=== PATIENT | female | born 1945 | race Caucasian/White ===

== ENCOUNTER → 2018-03-22 | Outpatient (CLI) | payer MEDICARE, BC ==
[2018-03-22 09:35] LABS: EOS # 0.1 (0.04-0.40); EOS % 1.8 % (1.0-5.0); HEMATOCRIT 43.5 % (37.0-47.0); HEMOGLOBIN 14.4 g/dL (12.5-16.0); LYMPH# 1.9 (1.50-4.00); MEAN CELL VOLUME 90 fl (78-100); MEAN CORPUSCULAR HEMOGLOBIN 30 pg (27-31); MEAN CORPUSCULAR HGB CONC 33 g/dL (33-37); MEAN PLATELET VOLUME 9.2 fl (7.4-10.4); MONO # 0.9 (0.20-0.80); NEU # 4.5 (1.40-6.50); PLATELET COUNT 337 K/mm3 (130-400); RED BLOOD COUNT 4.81 M/mm3 (4.10-5.30); RED CELL DISTRIBUTION WIDTH 13.6 % (11.5-14.5); WHITE BLOOD COUNT 7.4 K/mm3 (4.8-10.8)
[2018-03-22 09:51] LABS: ALBUMIN 4.1 g/dL (3.5-5.0); BUN/CREATININE RATIO 22.2 (6.0-26.0); POTASSIUM 3.5 mmol/L (3.6-5.0); TOTAL BILIRUBIN 0.5 mg/dL (0.2-1.3); TOTAL PROTEIN 7.3 g/dL (6.3-8.2)
== END ==
LOC: LAB 09:09
PROVIDERS: Family Medicine
DX: Z01.419 Encounter for gynecological examination (general) (routine) without abnormal findings (principal); E03.9 Hypothyroidism, unspecified

== ENCOUNTER → 2018-06-15 | Outpatient (CLI) | payer MEDICARE, BC | LOC: LAB 07:17 | DX: E03.9 Hypothyroidism, unspecified (principal) ==

== ENCOUNTER → 2018-08-31 | Outpatient (CLI) | payer MEDICARE, BC | LOC: MAMMO 08:07 | DX: Z12.31 Encounter for screening mammogram for malignant neoplasm of breast (principal) ==

== ENCOUNTER → 2018-09-26 | Outpatient (CLI) | payer MEDICARE, BC ==
[2018-09-26 15:22] LABS: ALBUMIN 4.6 g/dL (3.5-5.0); CALCIUM 9.5 mg/dL (8.4-10.2); POTASSIUM 3.6 mmol/L (3.6-5.0); TOTAL BILIRUBIN 0.5 mg/dL (0.2-1.3); TOTAL PROTEIN 7.4 g/dL (6.3-8.2)
== END ==
LOC: LAB 14:49
PROVIDERS: Family Medicine
DX: K44.9 Diaphragmatic hernia without obstruction or gangrene (principal); R91.1 Solitary pulmonary nodule; Z90.49 Acquired absence of other specified parts of digestive tract; Z90.710 Acquired absence of both cervix and uterus; Z90.89 Acquired absence of other organs; I10 Essential (primary) hypertension; E03.9 Hypothyroidism, unspecified; K43.9 Ventral hernia without obstruction or gangrene
CPT/HCPCS: Q9967

== ENCOUNTER → 2018-09-28 | Outpatient (CLI) | payer MEDICARE, BC | LOC: RAD 07:41 | DX: R91.1 Solitary pulmonary nodule (principal); R59.0 Localized enlarged lymph nodes | CPT/HCPCS: Q9967 ==

== ENCOUNTER → 2018-12-28 | Outpatient (CLI) | payer MEDICARE, BC ==
[2018-12-28 09:32] LABS: EOS # 0.1 (0.04-0.40); EOS % 1.1 % (1.0-5.0); HEMATOCRIT 44.4 % (37.0-47.0); HEMOGLOBIN 14.4 g/dL (12.5-16.0); LYMPH# 1.9 (1.50-4.00); MEAN CELL VOLUME 91 fl (78-100); MEAN CORPUSCULAR HEMOGLOBIN 29 pg (27-31); MEAN CORPUSCULAR HGB CONC 32 g/dL (33-37); MEAN PLATELET VOLUME 9.3 fl (7.4-10.4); MONO # 0.9 (0.20-0.80); NEU # 5.1 (1.40-6.50); PLATELET COUNT 342 K/mm3 (130-400); RED CELL DISTRIBUTION WIDTH 13.9 % (11.5-14.5); WHITE BLOOD COUNT 8.1 K/mm3 (4.8-10.8)
[2018-12-28 09:42] LABS: ALBUMIN 4.5 g/dL (3.5-5.0); CALCIUM 9.9 mg/dL (8.4-10.2); POTASSIUM 4.6 mmol/L (3.6-5.0); TOTAL BILIRUBIN 0.6 mg/dL (0.2-1.3); TOTAL PROTEIN 7.5 g/dL (6.3-8.2)
== END ==
LOC: LAB 08:56
PROVIDERS: Family Medicine
DX: E03.9 Hypothyroidism, unspecified (principal); I10 Essential (primary) hypertension

== ENCOUNTER → 2018-12-29 | Outpatient (CLI) | payer MEDICARE, BC | LOC: RAD 08:48 | DX: K44.9 Diaphragmatic hernia without obstruction or gangrene (principal); R91.1 Solitary pulmonary nodule | CPT/HCPCS: Q9967 ==

== ENCOUNTER → 2019-06-02 | Outpatient (CLI) | payer MEDICARE, BC | LOC: LAB 09:17 | DX: L03.90 Cellulitis, unspecified (principal) ==

== ENCOUNTER → 2019-06-13 | Outpatient (CLI) | payer MEDICARE, BC ==
[2019-06-13 09:44] LABS: HEMATOCRIT 42.8 % (37.0-47.0); HEMOGLOBIN 14.3 g/dL (12.5-16.0); MEAN CELL VOLUME 89 fl (78-100); MEAN CORPUSCULAR HEMOGLOBIN 30 pg (27-31); MEAN CORPUSCULAR HGB CONC 33 g/dL (33-37); MEAN PLATELET VOLUME 8.6 fl (7.4-10.4); PLATELET COUNT 295 K/mm3 (130-400); RED BLOOD COUNT 4.81 M/mm3 (4.10-5.30); RED CELL DISTRIBUTION WIDTH 14.3 % (11.5-14.5); WHITE BLOOD COUNT 5.4 K/mm3 (4.8-10.8)
[2019-06-13 09:55] LABS: ALBUMIN 4.3 g/dL (3.4-4.8); POTASSIUM 4.1 mmol/L (3.5-5.1); SODIUM 138 mmol/L (136-145)
[2019-06-13 09:56] LABS: CALCIUM 9.8 mg/dL (8.3-10.5)
[2019-06-13 09:57] LABS: GLUCOSE 105 mg/dL (65-105); TOTAL PROTEIN 7.4 g/dL (6.2-8.1)
[2019-06-13 09:58] LABS: CARBON DIOXIDE 26 mmol/L (23-31)
[2019-06-13 09:59] LABS: TOTAL BILIRUBIN 0.5 mg/dL (0.2-1.2)
[2019-06-13 10:03] LABS: AST-SGOT 27 U/L (5-34)
[2019-06-13 10:27] LABS: ALT/SGPT 34 U/L (0-55)
[2019-06-13 10:38] LABS: BAND 1 % (0-10); NEUTROPHILS 62 % (42-75)
[2019-06-13 10:39] LABS: LYMPHOCYTE 16 % (20-51); MONOCYTE 17 % (3-10)
== END ==
LOC: LAB 09:36
PROVIDERS: Family Medicine
DX: E87.6 Hypokalemia (principal); E03.9 Hypothyroidism, unspecified; I10 Essential (primary) hypertension

== ENCOUNTER → 2019-07-04 | Outpatient (CLI) | payer MEDICARE, BC ==
[2019-07-04 09:09] LABS: ALBUMIN 4.3 g/dL (3.4-4.8); POTASSIUM 3.7 mmol/L (3.5-5.1)
[2019-07-04 09:12] LABS: TOTAL PROTEIN 7.5 g/dL (6.2-8.1)
[2019-07-04 09:14] LABS: TOTAL BILIRUBIN 0.5 mg/dL (0.2-1.2)
== END ==
LOC: LAB 08:51
PROVIDERS: Family Medicine
DX: N17.9 Acute kidney failure, unspecified (principal); E03.9 Hypothyroidism, unspecified

== ENCOUNTER → 2019-07-31 | Outpatient (CLI) | payer MEDICARE, BC | LOC: RAD 11:05 | DX: M79.672 Pain in left foot (principal) ==

== ENCOUNTER → 2019-09-01 | Outpatient (CLI) | payer MEDICARE, BC | LOC: MAMMO 08:51 | DX: Z12.31 Encounter for screening mammogram for malignant neoplasm of breast (principal); N64.89 Other specified disorders of breast ==

== ENCOUNTER → 2019-09-11 | Outpatient (CLI) | payer MEDICARE, BC | LOC: LAB 07:13 → MAMMO 07:13 | DX: R92.8 Other abnormal and inconclusive findings on diagnostic imaging of breast (principal) ==

== ENCOUNTER → 2019-12-08 | Outpatient (CLI) | payer MEDICARE, BC ==
[2019-12-08 09:37] LABS: ALBUMIN 4.3 g/dL (3.4-4.8)
[2019-12-08 09:38] LABS: CALCIUM 10.2 mg/dL (8.3-10.5)
[2019-12-08 09:40] LABS: TOTAL PROTEIN 7.1 g/dL (6.2-8.1)
[2019-12-08 09:41] LABS: TOTAL BILIRUBIN 0.7 mg/dL (0.2-1.2)
[2019-12-08 10:23] LABS: EOS # 0.1 (0.04-0.40); EOS % 0.9 % (1.0-5.0); HEMATOCRIT 43.4 % (37.0-47.0); LYMPH# 2.2 (1.50-4.00); MEAN CELL VOLUME 90 fl (78-100); MEAN CORPUSCULAR HEMOGLOBIN 29 pg (27-31); MEAN CORPUSCULAR HGB CONC 32 g/dL (33-37); MEAN PLATELET VOLUME 9.2 fl (7.4-10.4); MONO # 0.8 (0.20-0.80); NEU # 4.3 (1.40-6.50); PLATELET COUNT 399 K/mm3 (130-400); RED BLOOD COUNT 4.82 M/mm3 (4.10-5.30); RED CELL DISTRIBUTION WIDTH 13.7 % (11.5-14.5); WHITE BLOOD COUNT 7.5 K/mm3 (4.8-10.8)
== END ==
LOC: LAB 09:09
PROVIDERS: Family Medicine
DX: Z00.00 Encounter for general adult medical examination without abnormal findings (principal); E78.5 Hyperlipidemia, unspecified; E03.9 Hypothyroidism, unspecified; E56.9 Vitamin deficiency, unspecified

== ENCOUNTER → 2019-12-19 | Outpatient (CLI) | payer MEDICARE, BC | LOC: RAD 12:50 → MAMMO 13:00 | DX: Z13.820 Encounter for screening for osteoporosis (principal); M85.80 Other specified disorders of bone density and structure, unspecified site ==

== ENCOUNTER → 2020-04-29 | Day surgery (SDC) | payer MEDICARE, BC | LOC: MSO 07:17 | DX: Z12.11 Encounter for screening for malignant neoplasm of colon (principal); Z86.010 Personal history of colon polyps; Z80.0 Family history of malignant neoplasm of digestive organs; K57.30 Diverticulosis of large intestine without perforation or abscess without bleeding; I10 Essential (primary) hypertension; K21.9 Gastro-esophageal reflux disease without esophagitis; E66.9 Obesity, unspecified; E07.9 Disorder of thyroid, unspecified; Z90.710 Acquired absence of both cervix and uterus; Z79.899 Other long term (current) drug therapy | CPT/HCPCS: 00812; J2704; J7120 ==

== ENCOUNTER → 2020-05-17 | Outpatient (CLI) | payer MEDICARE, BC ==
[2020-05-17 08:53] LABS: BASO # 0.1 (0.02-0.10); EOS # 0.1 (0.04-0.40); EOS % 1.1 % (1.0-5.0); HEMATOCRIT 41.9 % (37.0-47.0); HEMOGLOBIN 13.8 g/dL (12.5-16.0); MEAN CELL VOLUME 91 fl (78-100); MEAN CORPUSCULAR HEMOGLOBIN 30 pg (27-31); MEAN CORPUSCULAR HGB CONC 33 g/dL (33-37); MEAN PLATELET VOLUME 8.7 fl (7.4-10.4); NEU # 5.1 (1.40-6.50); PLATELET COUNT 361 K/mm3 (130-400); RED BLOOD COUNT 4.59 M/mm3 (4.10-5.30); RED CELL DISTRIBUTION WIDTH 13.6 % (11.5-14.5); WHITE BLOOD COUNT 8.3 K/mm3 (4.8-10.8)
[2020-05-17 09:07] LABS: ALBUMIN 4.3 g/dL (3.4-4.8); POTASSIUM 4.4 mmol/L (3.5-5.1)
[2020-05-17 09:10] LABS: TOTAL PROTEIN 7.4 g/dL (6.2-8.1)
[2020-05-17 09:12] LABS: TOTAL BILIRUBIN 0.7 mg/dL (0.2-1.2)
== END ==
LOC: LAB 08:43
PROVIDERS: Family Medicine
DX: Z00.00 Encounter for general adult medical examination without abnormal findings (principal); E03.9 Hypothyroidism, unspecified; E78.5 Hyperlipidemia, unspecified

== ENCOUNTER → 2020-05-22 | Outpatient (CLI) | payer MEDICARE, BC | LOC: LAB 09:14 | DX: R73.9 Hyperglycemia, unspecified (principal) ==

== ENCOUNTER → 2020-09-03 | Outpatient (CLI) | payer MEDICARE, BC | LOC: MAMMO 12:56 | DX: Z12.31 Encounter for screening mammogram for malignant neoplasm of breast (principal) ==

== ENCOUNTER → 2020-10-02 | Outpatient (CLI) | payer MEDICARE, BC ==
[2020-10-02 10:03] LABS: POTASSIUM 3.9 mmol/L (3.5-5.1)
[2020-10-02 10:04] LABS: CALCIUM 9.4 mg/dL (8.3-10.5)
[2020-10-02 10:11] LABS: MAGNESIUM 1.62 mg/dL (1.60-2.60)
== END ==
LOC: LAB 09:24
PROVIDERS: Family Medicine
DX: R25.2 Cramp and spasm (principal)

== ENCOUNTER → 2020-10-10 | Outpatient (CLI) | payer MEDICARE, BC | LOC: RAD 11:00 | DX: M79.606 Pain in leg, unspecified (principal); R25.2 Cramp and spasm ==

== ENCOUNTER → 2020-10-15 | Outpatient (CLI) | payer MEDICARE, BC | LOC: RAD 07:55 | DX: M43.16 Spondylolisthesis, lumbar region (principal); M51.36 Other intervertebral disc degeneration, lumbar region ==

== ENCOUNTER → 2020-10-17 | Outpatient (CLI) | payer MEDICARE, BC | LOC: RAD 13:22 | DX: M48.061 Spinal stenosis, lumbar region without neurogenic claudication (principal); M51.16 Intervertebral disc disorders with radiculopathy, lumbar region ==

== ENCOUNTER 2020-10-30 08:51 | Outpatient (RCR) | payer MEDICARE, BC | END 2020-12-04 16:30 | disposition home or self-care (01) | LOC: PT 08:51 | DX: M48.00 Spinal stenosis, site unspecified (principal) ==

== ENCOUNTER → 2020-12-10 | Outpatient (CLI) | payer MEDICARE, BC ==
[2020-12-10 09:37] LABS: ALBUMIN 4.4 g/dL (3.4-4.8); POTASSIUM 4.3 mmol/L (3.5-5.1)
[2020-12-10 09:38] LABS: CALCIUM 9.7 mg/dL (8.3-10.5)
[2020-12-10 09:39] LABS: TOTAL PROTEIN 7.4 g/dL (6.2-8.1)
[2020-12-10 09:41] LABS: TOTAL BILIRUBIN 0.7 mg/dL (0.2-1.2)
[2020-12-10 09:56] LABS: URINE APPEARANCE HAZY; URINE BILIRUBIN NEGATIVE (NEGATIVE); URINE BLOOD TRACE (NEGATIVE); URINE COLOR YELLOW; URINE GLUCOSE NEGATIVE (NEGATIVE); URINE KETONE NEGATIVE (NEGATIVE); URINE LEUKOCYTE ESTERASE NEGATIVE (NEGATIVE); URINE NITRATE NEGATIVE (NEGATIVE); URINE PROTEIN(semi-quant) TRACE mg/dL (NEGATIVE); URINE UROBILINOGEN NORMAL (NORMAL)
== END ==
LOC: LAB 09:09
PROVIDERS: Family Medicine
DX: Z00.00 Encounter for general adult medical examination without abnormal findings (principal); E03.9 Hypothyroidism, unspecified; R30.9 Painful micturition, unspecified

== ENCOUNTER → 2021-02-10 | Outpatient (CLI) | payer MEDICARE, BC | LOC: RAD 10:54 | DX: M79.672 Pain in left foot (principal) ==

== ENCOUNTER → 2021-05-06 | Outpatient (CLI) | payer MEDICARE, BC ==
[2021-05-06 13:41] LABS: ALBUMIN 4.3 g/dL (3.4-4.8); POTASSIUM 3.7 mmol/L (3.5-5.1)
[2021-05-06 13:42] LABS: CALCIUM 9.8 mg/dL (8.3-10.5)
[2021-05-06 13:43] LABS: HEMATOCRIT 39.8 % (37.0-47.0); MEAN PLATELET VOLUME 8.8 fl (7.4-10.4); RED BLOOD COUNT 4.28 M/mm3 (4.10-5.30); RED CELL DISTRIBUTION WIDTH 13.2 % (11.5-14.5); TOTAL PROTEIN 7.3 g/dL (6.2-8.1); WHITE BLOOD COUNT 10.2 K/mm3 (4.8-10.8)
[2021-05-06 13:45] LABS: TOTAL BILIRUBIN 0.4 mg/dL (0.2-1.2)
[2021-05-06 13:55] LABS: TROPONIN-I 0.03 ng/mL (<0.030)
== END ==
LOC: AMSURD 13:13
PROVIDERS: Nurse Practitioner
DX: I49.9 Cardiac arrhythmia, unspecified (principal)

== ENCOUNTER → 2021-05-22 | Outpatient (CLI) | payer MEDICARE, BC | LOC: AMSURD 15:42 | DX: I49.9 Cardiac arrhythmia, unspecified (principal) ==

== ENCOUNTER → 2021-06-17 | Outpatient (CLI) | payer MEDICARE, BC ==
[2021-06-17 10:03] LABS: BASO # 0.05 (0.02-0.10); EOS # 0.14 (0.04-0.40); HEMATOCRIT 40.5 % (37.0-47.0); HEMOGLOBIN 13.2 g/dL (12.5-16.0); LYMPH# 1.92 (1.50-4.00); MEAN CELL VOLUME 93 fl (78-100); MEAN CORPUSCULAR HEMOGLOBIN 30 pg (27-31); MEAN CORPUSCULAR HGB CONC 33 g/dL (33-37); MEAN PLATELET VOLUME 8.8 fl (7.4-10.4); MONO # 0.78 (0.20-0.80); NEU # 4.13 (1.40-6.50); PLATELET COUNT 355 K/mm3 (130-400); RED BLOOD COUNT 4.38 M/mm3 (4.10-5.30); RED CELL DISTRIBUTION WIDTH 13.5 % (11.5-14.5); WHITE BLOOD COUNT 7.1 K/mm3 (4.8-10.8)
[2021-06-17 10:04] LABS: ALBUMIN 4.3 g/dL (3.4-4.8); POTASSIUM 4.7 mmol/L (3.5-5.1)
[2021-06-17 10:05] LABS: CALCIUM 10.5 mg/dL (8.3-10.5)
[2021-06-17 10:06] LABS: TOTAL PROTEIN 7.3 g/dL (6.2-8.1)
[2021-06-17 10:08] LABS: TOTAL BILIRUBIN 0.5 mg/dL (0.2-1.2)
== END ==
LOC: LAB 09:03
PROVIDERS: Family Medicine
DX: E55.9 Vitamin D deficiency, unspecified (principal); I10 Essential (primary) hypertension; E03.9 Hypothyroidism, unspecified

== ENCOUNTER → 2021-07-29 | Outpatient (CLI) | payer MEDICARE, BC | LOC: RAD 10:40 → LAB 10:40 → RAD 10:45 | DX: N18.32 Chronic kidney disease, stage 3b (principal) ==

== ENCOUNTER → 2021-07-31 | Outpatient (CLI) | payer MEDICARE, BC | LOC: RAD 08:52 | DX: M16.11 Unilateral primary osteoarthritis, right hip (principal); M25.561 Pain in right knee ==

== ENCOUNTER → 2021-09-10 | Outpatient (CLI) | payer MEDICARE, BC | LOC: MAMMO 08:11 | DX: Z12.31 Encounter for screening mammogram for malignant neoplasm of breast (principal) ==

== ENCOUNTER → 2021-10-21 | Outpatient (CLI) | payer MEDICARE, BC ==
[2021-10-21 08:34] LABS: ALBUMIN 4.5 g/dL (3.4-4.8); POTASSIUM 4.2 mmol/L (3.5-5.1)
[2021-10-21 08:35] LABS: CALCIUM 10.2 mg/dL (8.3-10.5)
[2021-10-21 08:36] LABS: TOTAL PROTEIN 7.5 g/dL (6.2-8.1)
[2021-10-21 08:38] LABS: TOTAL BILIRUBIN 0.7 mg/dL (0.2-1.2)
[2021-10-21 09:26] LABS: URINE APPEARANCE CLEAR; URINE BILIRUBIN NEGATIVE (NEGATIVE); URINE BLOOD TRACE (NEGATIVE); URINE COLOR YELLOW; URINE GLUCOSE NEGATIVE (NEGATIVE); URINE KETONE NEGATIVE (NEGATIVE); URINE LEUKOCYTE ESTERASE NEGATIVE (NEGATIVE); URINE NITRATE NEGATIVE (NEGATIVE); URINE PROTEIN(semi-quant) TRACE (NEGATIVE); URINE UROBILINOGEN NORMAL (NORMAL)
== END ==
LOC: LAB 07:54
PROVIDERS: Internal Medicine Nephrology
DX: I12.9 Hypertensive chronic kidney disease with stage 1 through stage 4 chronic kidney disease, or unspecified chronic kidney disease (principal); N18.32 Chronic kidney disease, stage 3b; E66.8 Other obesity

== ENCOUNTER → 2021-11-19 | Outpatient (CLI) | payer MEDICARE, BC ==
[2021-11-19 10:05] LABS: BASO # 0.06 K/mm3 (0.02-0.10); EOS # 0.12 K/mm3 (0.04-0.40); EOS % 1.7 % (1.0-5.0); HEMOGLOBIN 13.7 g/dL (12.5-16.0); LYMPH# 1.91 K/mm3 (1.50-4.00); MEAN CELL VOLUME 90 fl (78-100); MEAN CORPUSCULAR HEMOGLOBIN 30 pg (27-31); MEAN CORPUSCULAR HGB CONC 33 g/dL (33-37); MONO # 0.95 K/mm3 (0.20-0.80); NEU # 4.11 K/mm3 (1.40-6.50); PLATELET COUNT 359 K/mm3 (130-400); RED BLOOD COUNT 4.56 M/mm3 (4.10-5.30); WHITE BLOOD COUNT 7.2 K/mm3 (4.8-10.8)
[2021-11-19 10:10] LABS: ALBUMIN 4.4 g/dL (3.4-4.8)
[2021-11-19 10:12] LABS: CALCIUM 9.8 mg/dL (8.3-10.5)
[2021-11-19 10:13] LABS: TOTAL PROTEIN 7.2 g/dL (6.2-8.1)
[2021-11-19 10:15] LABS: TOTAL BILIRUBIN 0.6 mg/dL (0.2-1.2)
== END ==
LOC: LAB 09:35
PROVIDERS: Family Medicine
DX: I12.9 Hypertensive chronic kidney disease with stage 1 through stage 4 chronic kidney disease, or unspecified chronic kidney disease (principal); N18.2 Chronic kidney disease, stage 2 (mild); E03.9 Hypothyroidism, unspecified; E55.9 Vitamin D deficiency, unspecified; E78.5 Hyperlipidemia, unspecified

== ENCOUNTER → 2021-12-23 | Outpatient (CLI) | payer MEDICARE, BC | LOC: RAD 08:06 → MAMMO 08:06 | DX: Z13.820 Encounter for screening for osteoporosis (principal); M85.80 Other specified disorders of bone density and structure, unspecified site ==

== ENCOUNTER → 2022-05-20 | Outpatient (CLI) | payer MEDICARE, BC ==
[2022-05-20 08:13] LABS: BASO # 0.04 K/mm3 (0.02-0.10); EOS # 0.14 K/mm3 (0.04-0.40); EOS % 1.7 % (1.0-5.0); HEMATOCRIT 40.9 % (37.0-47.0); HEMOGLOBIN 13.4 g/dL (12.5-16.0); LYMPH# 1.85 K/mm3 (1.50-4.00); MEAN CELL VOLUME 92 fl (78-100); MEAN CORPUSCULAR HEMOGLOBIN 30 pg (27-31); MEAN CORPUSCULAR HGB CONC 33 g/dL (33-37); MEAN PLATELET VOLUME 8.8 fl (7.4-10.4); MONO # 0.78 K/mm3 (0.20-0.80); NEU # 5.41 K/mm3 (1.40-6.50); PLATELET COUNT 356 K/mm3 (130-400); RED BLOOD COUNT 4.44 M/mm3 (4.10-5.30); RED CELL DISTRIBUTION WIDTH 12.9 % (11.5-14.5); WHITE BLOOD COUNT 8.3 K/mm3 (4.8-10.8)
[2022-05-20 08:15] LABS: ALBUMIN 4.4 g/dL (3.4-4.8); POTASSIUM 4.5 mmol/L (3.5-5.1)
[2022-05-20 08:17] LABS: CALCIUM 9.7 mg/dL (8.3-10.5)
[2022-05-20 08:18] LABS: TOTAL PROTEIN 7.2 g/dL (6.2-8.1)
[2022-05-20 08:20] LABS: TOTAL BILIRUBIN 0.6 mg/dL (0.2-1.2)
== END ==
LOC: LAB 07:47
PROVIDERS: Family Medicine
DX: I12.9 Hypertensive chronic kidney disease with stage 1 through stage 4 chronic kidney disease, or unspecified chronic kidney disease (principal); N18.2 Chronic kidney disease, stage 2 (mild); E03.9 Hypothyroidism, unspecified; E55.9 Vitamin D deficiency, unspecified

== ENCOUNTER → 2022-06-26 | Outpatient (CLI) | payer MEDICARE, BC ==
[2022-06-26 14:24] LABS: BASO # 0.05 K/mm3 (0.02-0.10); EOS # 0.14 K/mm3 (0.04-0.40); EOS % 1.3 % (1.0-5.0); HEMOGLOBIN 12.5 g/dL (12.5-16.0); LYMPH# 2.36 K/mm3 (1.50-4.00); MEAN CELL VOLUME 93 fl (78-100); MEAN CORPUSCULAR HEMOGLOBIN 30 pg (27-31); MEAN CORPUSCULAR HGB CONC 33 g/dL (33-37); MEAN PLATELET VOLUME 8.8 fl (7.4-10.4); PLATELET COUNT 330 K/mm3 (130-400); RED BLOOD COUNT 4.11 M/mm3 (4.10-5.30); RED CELL DISTRIBUTION WIDTH 13.6 % (11.5-14.5); WHITE BLOOD COUNT 10.7 K/mm3 (4.8-10.8)
[2022-06-26 14:32] LABS: ALBUMIN 4.3 g/dL (3.4-4.8)
[2022-06-26 14:33] LABS: POTASSIUM 4.3 mmol/L (3.5-5.1)
[2022-06-26 14:34] LABS: CALCIUM 9.5 mg/dL (8.3-10.5)
[2022-06-26 14:36] LABS: PROTHROMBIN TIME 10.2 SECONDS (9.0-12.0)
[2022-06-26 14:37] LABS: TOTAL BILIRUBIN 0.4 mg/dL (0.2-1.2)
[2022-06-26 15:02] LABS: URINE APPEARANCE HAZY; URINE BILIRUBIN NEGATIVE (NEGATIVE); URINE BLOOD NEGATIVE (NEGATIVE); URINE COLOR YELLOW; URINE GLUCOSE NEGATIVE (NEGATIVE); URINE KETONE NEGATIVE (NEGATIVE); URINE LEUKOCYTE ESTERASE NEGATIVE (NEGATIVE); URINE MUCUS PRESENT (NOT PRESENT); URINE NITRATE NEGATIVE (NEGATIVE); URINE PROTEIN(semi-quant) NEGATIVE (NEGATIVE); URINE UROBILINOGEN NORMAL (NORMAL)
== END ==
LOC: LAB 13:33
PROVIDERS: Family Medicine
DX: Z01.812 Encounter for preprocedural laboratory examination (principal); Z01.810 Encounter for preprocedural cardiovascular examination; K44.9 Diaphragmatic hernia without obstruction or gangrene; H81.13 Benign paroxysmal vertigo, bilateral; I12.9 Hypertensive chronic kidney disease with stage 1 through stage 4 chronic kidney disease, or unspecified chronic kidney disease; N18.2 Chronic kidney disease, stage 2 (mild); K21.9 Gastro-esophageal reflux disease without esophagitis; E03.9 Hypothyroidism, unspecified; N39.46 Mixed incontinence; E66.9 Obesity, unspecified; E55.9 Vitamin D deficiency, unspecified

== ENCOUNTER 2022-08-12 09:00 | Outpatient (RCR) | payer MEDICARE, BC | END 2022-09-09 | disposition home or self-care (01) | LOC: PT | DX: M25.561 Pain in right knee (principal); Z96.651 Presence of right artificial knee joint ==

== ENCOUNTER → 2023-06-16 | Outpatient (CLI) | payer MEDICARE, BC | LOC: LAB 14:17 | DX: B07.0 Plantar wart (principal); E03.9 Hypothyroidism, unspecified; R63.5 Abnormal weight gain ==

== ENCOUNTER → 2023-08-03 | Outpatient (CLI) | payer MEDICARE, BC | LOC: LAB 10:29 | DX: E03.9 Hypothyroidism, unspecified (principal); B07.0 Plantar wart; R63.5 Abnormal weight gain ==

== ENCOUNTER → 2023-09-08 | Outpatient (CLI) | payer MEDICARE, BC ==
[2023-09-08 10:32] LABS: ALBUMIN 4.4 g/dL (3.4-4.8)
[2023-09-08 10:33] LABS: CALCIUM 9.4 mg/dL (8.3-10.5)
[2023-09-08 10:34] LABS: TOTAL PROTEIN 7.2 g/dL (6.2-8.1)
[2023-09-08 10:36] LABS: TOTAL BILIRUBIN 0.7 mg/dL (0.2-1.2)
[2023-09-08 10:41] LABS: MAGNESIUM 1.29 mg/dL (1.60-2.60)
== END ==
LOC: LAB 10:12
PROVIDERS: Nurse Practitioner
DX: Z00.00 Encounter for general adult medical examination without abnormal findings (principal); R25.2 Cramp and spasm; E78.5 Hyperlipidemia, unspecified; R60.0 Localized edema; E03.9 Hypothyroidism, unspecified; M25.551 Pain in right hip

== ENCOUNTER → 2023-10-14 | Outpatient (CLI) | payer MEDICARE, BC | LOC: RAD 11:55 | DX: Z12.31 Encounter for screening mammogram for malignant neoplasm of breast (principal); M76.01 Gluteal tendinitis, right hip ==

== ENCOUNTER 2023-11-01 09:46 | Outpatient (RCR) | payer MEDICARE, BC | END 2023-11-10 | disposition home or self-care (01) | LOC: PT | DX: M76.01 Gluteal tendinitis, right hip (principal) ==

== ENCOUNTER 2023-11-11 08:00 | Outpatient (RCR) | payer MEDICARE, BC | END 2023-12-09 13:41 | disposition home or self-care (01) | LOC: PT 08:00 | DX: M76.01 Gluteal tendinitis, right hip (principal) ==

== ENCOUNTER → 2023-12-23 | Outpatient (CLI) | payer MEDICARE, BC ==
[2023-12-23 15:32] LABS: CREATININE OTHER SOURCE 17 mg/dL (63-166)
== END ==
LOC: LAB 07:21
PROVIDERS: Internal Medicine Nephrology
DX: I12.9 Hypertensive chronic kidney disease with stage 1 through stage 4 chronic kidney disease, or unspecified chronic kidney disease (principal); N18.32 Chronic kidney disease, stage 3b

== ENCOUNTER → 2024-04-20 | Outpatient (CLI) | payer MEDICARE, BC ==
[2024-04-20 07:46] LABS: ALBUMIN 4.3 g/dL (3.4-4.8)
[2024-04-20 07:48] LABS: TOTAL PROTEIN 6.9 g/dL (6.2-8.1)
[2024-04-20 07:54] LABS: DIRECT BILIRUBIN 0.4 mg/dL (0.0-0.5)
== END ==
LOC: LAB 07:24
PROVIDERS: Internal Medicine Interventional Cardiology
DX: E78.5 Hyperlipidemia, unspecified (principal)

== ENCOUNTER → 2024-06-09 | Outpatient (CLI) | payer MEDICARE, BC ==
[2024-06-09 09:13] LABS: ALBUMIN 4.4 g/dL (3.4-4.8)
[2024-06-09 09:16] LABS: TOTAL PROTEIN 6.9 g/dL (6.2-8.1)
[2024-06-09 09:17] LABS: TOTAL BILIRUBIN 0.9 mg/dL (0.2-1.2)
[2024-06-09 09:21] LABS: DIRECT BILIRUBIN 0.3 mg/dL (0.0-0.5)
== END ==
LOC: LAB 08:52
PROVIDERS: Internal Medicine Interventional Cardiology
DX: E78.5 Hyperlipidemia, unspecified (principal)

== ENCOUNTER → 2024-09-25 | Outpatient (CLI) | payer MEDICARE, BC | LOC: MAMMO 08:45 | DX: Z12.31 Encounter for screening mammogram for malignant neoplasm of breast (principal) ==

== ENCOUNTER → 2024-11-13 | Outpatient (CLI) | payer MEDICARE, BC | LOC: RAD 12:38 → MAMMO 13:00 | DX: Z13.820 Encounter for screening for osteoporosis (principal) ==

== ENCOUNTER → 2024-11-17 | Outpatient (CLI) | payer MEDICARE, BC | LOC: LAB 09:17 | PROVIDERS: Internal Medicine Nephrology | DX: I12.9 Hypertensive chronic kidney disease with stage 1 through stage 4 chronic kidney disease, or unspecified chronic kidney disease (principal); N18.32 Chronic kidney disease, stage 3b ==